=== PATIENT | female | born 1995 | race Caucasian/White ===

== ENCOUNTER 2024-08-03 09:24 | Observation (INO) | payer MEDICAID ==
[2024-08-03 10:29] LABS: BASOPHILS PERCENT AUTO 0.1 % (0.0-1.0); EOSINOPHILS ABSOLUTE AUTO 0.3 K/mm3 (0.0-0.4); EOSINOPHILS PERCENT AUTO 2.3 % (0.0-6.0); HEMATOCRIT 29.7 % (37.0-47.0); HEMOGLOBIN 10.2 gm/dl (12.0-16.0); IMMATURE GRAN ABSOLUTE AUTO 0.08 K/mm3 (0.00-0.05); IMMATURE GRAN PERCENT AUTO 0.6 % (0.0-0.4); LYMPHOCYTES ABSOLUTE AUTO 1.7 K/mm3 (1.0-4.8); LYMPHOCYTES PERCENT AUTO 12.5 % (24.0-44.0); MEAN CORPUSCULAR HEMOGLOBIN 29.4 pg (28.0-32.0); MEAN CORPUSCULAR HGB CONC 34.3 g/dl (32.0-36.0); MEAN CORPUSCULAR VOLUME 85.6 fl (83.0-99.0); MEAN PLATELET VOLUME 9.1 fl (9.4-12.3); MONOCYTES ABSOLUTE AUTO 1.1 K/mm3 (0.0-0.8); MONOCYTES PERCENT AUTO 7.6 % (0.0-8.0); NEUTROPHILS ABSOLUTE AUTO 10.7 K/mm3 (1.8-7.7); NEUTROPHILS PERCENT AUTO 76.9 % (41.0-71.0); PLATELET COUNT,PLT 248 K/mm3 (150-400); RED BLOOD CELL COUNT 3.47 M/mm3 (4.10-5.30); WHITE BLOOD CELL COUNT,WBC 13.85 K/mm3 (3.9-11.3)
[2024-08-03 10:58] LABS: CREATININE 0.5 mg/dL (0.55-1.02); EST CRCL DRUG DOSING (CG) 170.49 mL/min
[2024-08-03 11:48] LABS: APPEARANCE,URINE CLEAR (Clear); BILIRUBIN,URINE NEGATIVE (Negative); COLOR,URINE YELLOW (Yellow); GLUCOSE,URINE NEGATIVE (Negative); KETONES,URINE NEGATIVE (Negative); LEUKOCYTE ESTERASE,URINE NEGATIVE (Negative); NITRITE,URINE NEGATIVE (Negative); OCCULT BLOOD,URINE NEGATIVE (Negative); PH,URINE 7.5 (5.0-8.0); PROTEIN,URINE 1+ (Negative); UROBILINOGEN,URINE 0.2 (0.2-1.0)
[2024-08-03 12:05] LABS: AMORPHOUS SEDIMENT,URINE FEW /hpf (NOT SEEN); BACTERIA,URINE FEW /hpf (FEW); MUCUS,URINE FEW /hpf (FEW); RBC,URINE 0-5 /hpf (0-5); SQUAMOUS EPITHELIAL CELLS,UR 0-5 /hpf (0-5); WBC,URINE 0-5 /hpf (0-5)
[2024-08-03 13:51] LABS: CREATININE,URINE RAND 93.1 mg/dL (30.0-125.0); PROTEIN CREATININE RATIO,URINE 309.3 mg/g (0-149); PROTEIN,URINE RANDOM 28.8 mg/dL (0.0-11.8)
[2024-08-03] MEDS: Acetaminophen 325 MG Tab PO PRN (14:33)
[2024-08-03] MEDS: NOVOLOG SUBCUT SCH (17:05)
[2024-08-03] MEDS: Labetalol 100 MG Tab PO SCH (20:19)
[2024-08-03] MEDS: Aspirin 81 MG Tab.EC PO SCH (20:20)
[2024-08-04 06:50] LABS: HEMATOCRIT 30.2 % (37.0-47.0); HEMOGLOBIN 10.2 gm/dl (12.0-16.0); MEAN CORPUSCULAR HEMOGLOBIN 29.2 pg (28.0-32.0); MEAN CORPUSCULAR HGB CONC 33.8 g/dl (32.0-36.0); MEAN CORPUSCULAR VOLUME 86.5 fl (83.0-99.0); MEAN PLATELET VOLUME 9.1 fl (9.4-12.3); PLATELET COUNT,PLT 248 K/mm3 (150-400); RED BLOOD CELL COUNT 3.49 M/mm3 (4.10-5.30); WHITE BLOOD CELL COUNT,WBC 14.66 K/mm3 (3.9-11.3)
[2024-08-04] MEDS ORDERED: oxyCODONE 5 MG Tab PO PRN (07:06)
[2024-08-04 07:10] LABS: A/G RATIO 0.7 (1-2); ALBUMIN 2.3 g/dl (3.4-5.0); BILIRUBIN TOTAL 0.3 mg/dL (0.2-1.0); CALCIUM 8.3 mg/dL (8.5-10.1); CREATININE 0.5 mg/dL (0.55-1.02); EST CRCL DRUG DOSING (CG) 170.49 mL/min; PROTEIN TOTAL,TP 5.8 g/dl (6.4-8.2)
[2024-08-04] MEDS: NOVOLOG SUBCUT SCH ×2 (07:30→11:07)
[2024-08-04] MEDS: Labetalol 100 MG Tab PO SCH (08:17)
[2024-08-04] MEDS: Prenatal Multivitamin with Calcium/Folic Acid/Iron Tab PO SCH (08:18)
[2024-08-04] MEDS: Cyclobenzaprine 10 MG Tab PO PRN (08:18)
[2024-08-04] MEDS ORDERED: Aspirin 81 MG Tab.EC PO SCH (09:00)
[2024-08-04] MEDS: Ondansetron 4 MG Tab.DIS PO ONE (11:30)
[2024-08-04] MEDS ORDERED: Calcium Gluconate 10% 1 GM/10 ML SDV IV PRN (12:09)
[2024-08-04] MEDS: Lactated Ringers 1,000 ML IV SCH (12:35)
[2024-08-04] MEDS: Magnesium Sulf/Wat 4 GM/50 mL 4 GM in Premix Bag 1 BAG IV ONE (12:36)
== END 2024-08-04 13:19 ==
LOC: JD.OBCHECK 09:24 → JD.OB 09:25 → JD.OBCHECK 09:54 → JD.OB 09:54
PROVIDERS: ADMIT Obstetrics & Gynecology; ATTEND Obstetrics & Gynecology
DX: O11.3 Pre-existing hypertension with pre-eclampsia, third trimester (principal); O24.414 Gestational diabetes mellitus in pregnancy, insulin controlled; O99.213 Obesity complicating pregnancy, third trimester; E66.09 Other obesity due to excess calories; Z79.82 Long term (current) use of aspirin; Z3A.34 34 weeks gestation of pregnancy; Z79.899 Other long term (current) drug therapy
CPT/HCPCS: 36415; 59025; 80053; 81001; 82565; 82570; 83615; 84112; 84156; 84450; 84460; 84520; 84550; 85025; 85027; 86850; 86900; 86901; A9270; J3475; J7120; J3490